=== PATIENT | female | born 1950 | race Caucasian/White ===

== ENCOUNTER → 2018-12-03 | Outpatient (CLI) | payer MEDICARE, OTHER ==
[~2018-12-03] MED LIST: Bactrim Ds Tab1 EACH PO; CARV25 PO; CARV3.125; CHOL10002 PO; CYCL10 PO; Calcium Citrat250 MG PO; EXEM25 PO; EXEMESTANE25 MG PO; Fish Oil 10001000 MG PO; HYDACE5 PO; HYDR1TAB94 PO; Norco 5-325 Ta1 EACH PO; OXYACE5T PO; PROBIOTIC1 EAC1 PO; PROM25 PO; SERT50 PO; Solaraze100 GM TOP; TUMERSAID TABL1 EACH PO; VITAMIN B SL; XARELTO10 MG PO; Zofran8 MG PO; [UNRECOGNIZED DRUG - REMARK]; [UNRECOGNIZED DRUG - REMARK]
== END | disposition home or self-care (01) ==
LOC: LAB SHORT 09:47 → LAB EV 09:47
DX: J03.90 Acute tonsillitis, unspecified (principal)
CPT/HCPCS: 87081; 87147

== ENCOUNTER → 2020-01-30 | Outpatient (CLI) | payer MEDICARE, OTHER | END | disposition home or self-care (01) | LOC: LAB 13:06 → LAB SHORT 13:06 | DX: R22.1 Localized swelling, mass and lump, neck (principal) | CPT/HCPCS: 87081; 87147 ==

== ENCOUNTER 2020-06-09 09:56 | Day surgery (SDC) | payer MEDICARE, OTHER ==
[~2020-06-09] VITALS: Ht 162.6 cm; Wt 116.8 kg
[~2020-06-09 09:56] MED LIST changes: +CALCIUM CIT 311 EACH; -Calcium Citrat250 MG PO; +FISH OIL PO; +VIT1CAPS12 PO
--- NOTE | 2020-06-09 14:11 | NUR ---
06/09/20 1411 Jaylene Baptiste History, Chart, Medications and Allergies reviewed before start of procedure.Patient confirms NPO status and agrees with scheduled surgery.3-LEAD EKG REVIEWED WITH PHYSICIAN PRIOR TO START OF PROCEDURE.MONITOR INTACT WITH CONTINUOUS PULSE OXIMETRY AND INTERMITTENT BP.O2 VIA N/C INTACT THROUGHOUT SEDATION/PROCEDURE. See Anesthesia record
--- NOTE | 2020-06-09 15:23 | NUR ---
Discharge instructions reviewed with patient. Patient verbalizes understanding. Copy given to patient to take home. Discharged via wheelchair to private car for ride home.
== END 2020-06-09 15:24 | disposition home or self-care (01) ==
LOC: ORSCMMR 09:56 → ORD 11:30 → ORSCMMR 15:24
PROVIDERS: Surgery
PROC: 0DJD8ZZ Inspection of Lower Intestinal Tract, Via Natural or Artificial Opening Endoscopic (ICD-10-PCS; principal; 2020-06-09 11:30)
DX: K62.5 Hemorrhage of anus and rectum (principal); G47.33 Obstructive sleep apnea (adult) (pediatric); K64.8 Other hemorrhoids; K64.4 Residual hemorrhoidal skin tags; K57.30 Diverticulosis of large intestine without perforation or abscess without bleeding; E66.01 Morbid (severe) obesity due to excess calories; Z68.43 Body mass index [BMI] 50.0-59.9, adult; I10 Essential (primary) hypertension; K21.9 Gastro-esophageal reflux disease without esophagitis; Z79.899 Other long term (current) drug therapy
CPT/HCPCS: J2405; J2704; J7120

== ENCOUNTER 2023-04-26 07:23 | Day surgery (SDC) | payer MEDICARE, OTHER ==
[~2023-04-26] VITALS: Ht 157.5 cm; Wt 131.3 kg
[~2023-04-26 07:23] MED LIST changes: +Balanced Salt Epinephrine Irrigation Solution 500 mL IR SCH; +Lidocaine HCl/Pf 1% 5 ML VIAL ONE; +Lidocaine HCl/Pf 1% 5 ML VIAL XX SCH; +Moxifloxacin HCL 0.5 MG/0.1 ML 0.4MLSYR LEFTEYE SCH; +NS 500 ML IV ONE; +PHENYLEPHRINE\\TROPICAMIDE\\TETRACAINE OPHTHALMIC DILATING SOLN LEFTEYE PRN; +Povidone-Iodine 450 DROP/30 ML Solution LEFTEYE SCH; +Povidone-Iodine 450 DROP/30 ML Solution ONE
[2023-04-26] MEDS ORDERED: ORTIKOS9 M1 PO (07:44)
--- NOTE | 2023-04-26 07:53 | NUR ---
04/26/23 0753 Carolynn Wilson AT [phone]
[2023-04-26] MEDS ORDERED: NS 500 ML IV ONE (07:54)
[2023-04-26] MEDS ORDERED: Midazolam HCl 1MG / ML 2ML Vial ONE (08:23)
[2023-04-26] MEDS ORDERED: FentaNYL Citrate 50 MCG/ML 2 ML Injection ONE (08:23)
[2023-04-26] MEDS ORDERED: Tetracaine HCl 0.5% Opth Soln 15 ml LEFTEYE ONE (08:34)
[2023-04-26] MEDS ORDERED: Ondansetron HCl 2 MG / ML 2ML Vial ONE (08:46)
[2023-04-26 09:00] VITALS: BP 142/71
--- NOTE | 2023-04-26 09:17 | NUR ---
04/26/23 0917 Matt Ríos PT ADVISED TO MONITOR B/P AT HOME AND FOLLOW UP WITH PCP.
== END 2023-04-26 09:13 | disposition home or self-care (01) ==
LOC: ORSCSDS 07:23
PROVIDERS: Student in an Organized Health Care Education/Training Program
PROC: 08RK3JZ Replacement of Left Lens with Synthetic Substitute, Percutaneous Approach (ICD-10-PCS; principal; 2023-04-26 08:30)
DX: H25.13 Age-related nuclear cataract, bilateral (principal); I10 Essential (primary) hypertension; K21.9 Gastro-esophageal reflux disease without esophagitis; G47.33 Obstructive sleep apnea (adult) (pediatric); F32.A Depression, unspecified; E66.9 Obesity, unspecified; Z68.43 Body mass index [BMI] 50.0-59.9, adult; Z79.899 Other long term (current) drug therapy
CPT/HCPCS: J2001; J2250; J2405; J3010; J7040; V2632

== ENCOUNTER 2023-05-10 07:03 | Day surgery (SDC) | payer MEDICARE, OTHER ==
[~2023-05-10] VITALS: Ht 157.5 cm; Wt 130.5 kg
[~2023-05-10 07:03] MED LIST changes: +ALBU90OI INH; +BUDESONIDE INH; -CALCIUM CIT 311 EACH; +CALCIUM CITRAT200 MG PO; -CARV25 PO; +Carvedilol12.5 MG PO; -Moxifloxacin HCL 0.5 MG/0.1 ML 0.4MLSYR LEFTEYE SCH; +Moxifloxacin HCL 0.5 MG/0.1 ML 0.4MLSYR RIGHTEYE SCH; +OMEGA-3-FISH O1 EAC3 PO; -PHENYLEPHRINE\\TROPICAMIDE\\TETRACAINE OPHTHALMIC DILATING SOLN LEFTEYE PRN; +PHENYLEPHRINE\\TROPICAMIDE\\TETRACAINE OPHTHALMIC DILATING SOLN RIGHTEYE PRN; -Povidone-Iodine 450 DROP/30 ML Solution LEFTEYE SCH; +Povidone-Iodine 450 DROP/30 ML Solution RIGHTEYE SCH
[2023-05-10] MEDS ORDERED: FentaNYL Citrate 50 MCG/ML 2 ML Injection ONE (07:28)
[2023-05-10] MEDS ORDERED: Midazolam HCl 1MG / ML 2ML Vial ONE (07:29)
[2023-05-10] MEDS ORDERED: NS 500 ML IV ONE (07:44)
--- NOTE | 2023-05-10 07:45 | NUR ---
05/10/23 0745 Riccardo Bray CALL LIGHT WITHIN REACH. TETRACAINE IN RIGHT EYE AT 0743 AND PLEDGETT IN AT 0744
[2023-05-10] MEDS ORDERED: Tetracaine HCl 0.5% Opth Soln 15 ml RIGHTEYE ONE (08:23)
[2023-05-10 09:04] VITALS: BP 172/78
== END 2023-05-10 09:05 | disposition home or self-care (01) ==
LOC: ORSCSDS 07:03
PROVIDERS: Student in an Organized Health Care Education/Training Program
PROC: 08RJ3JZ Replacement of Right Lens with Synthetic Substitute, Percutaneous Approach (ICD-10-PCS; principal; 2023-05-10 08:30)
DX: H25.11 Age-related nuclear cataract, right eye (principal); Z96.1 Presence of intraocular lens; I10 Essential (primary) hypertension; K21.9 Gastro-esophageal reflux disease without esophagitis; G47.33 Obstructive sleep apnea (adult) (pediatric); E66.9 Obesity, unspecified; Z68.43 Body mass index [BMI] 50.0-59.9, adult; Z79.899 Other long term (current) drug therapy
CPT/HCPCS: J2001; J2250; J3010; J7040; V2632